=== PATIENT | female | born 1970 | race Caucasian/White ===

== ENCOUNTER 2022-08-26 09:16 | Outpatient (CLI) | payer OTHER, BC, MEDICAID, SELFPAY ==
--- NOTE | 2022-08-26 | ECG_ITS ---
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 Interpretive Statements NAME OF STUDY: EXERCISE SESTAMIBI STRESS TEST INDICATION: [Exertional Chest Pain, ] EXERCISE DATA: The patient was exercised by Bubba protocol. Baseline heart rate was 78 beats per minute. Baseline blood pressure was 154/112 millimeters of mercury. Target heart rate was 144 beats per minute. Maximum heart rate achieved was 151, which was 104% of the target heart rate. Maximum blood pressure was 203/100 millimeters of mercury. Total exercise time was 8 minutes and 1 seconds. Maximum METs achieved was 10.2. The reason for ending the test was completion of protocol. The patient complained of shortness of breath during the stress test, which then resolved at the end of the test. ELECTROCARDIOGRAM: BASELINE: Showed sinus rhythm, normal axis, no significant ST-T changes at the baseline noted. [] EXERCISE: At the peak exercise level, [] No significant ST-T changes suggestive of ischemia noted. [] RECOVERY: During the recovery period, heart rate dropped appropriately. No significant ST-T changes in the recovery suggestive of ischemia noted. [] CONCLUSION: 1. Exercise capacity []. 2. Heart rate response was [appropriate]. 3. Blood pressure response was [appropriate]. 4. Symptoms not suggestive of ischemia. 5. Electrocardiogram portion of the stress test was not suggestive of ischemia. 6. Nuclear scan will be documented separately. Electronically Signed On 09-10-2022 12:09:37 CDT by Peter Talamantes M.D. [id number]
[2022-08-26 11:05] VITALS: BMI 29.9
--- NOTE | 2022-08-26 11:31 | NMCV_ITS ---
NM ruslan perf SPECT r/s* [id number] Sudha Lopez Age: 51 Gender: F : 1970 Exam Date: 08/26/2022 11:31 Ordering Phys: Saba Sifuentes Technologist: EROS Andrade Exam Location: [facility] Indications: CHEST PAIN STRESS TEST Please see separate stress test report in [facility] for full findings IMAGE PROTOCOL Rest/Stress 1 Exercise Day Radiopharmaceutical Dose (mCi) Administration Site Administered by Rest: Tc-99m 10.8 IV EROS Robles Sestamibi Stress:Tc-99m 32.6 IV EROS Andrade Sestamibrissa Rest: 26-Aug-2022 60 Discovery 630 Stress: 26-Aug-2022 15 Discovery 630 Radiopharmaceutical was injected at 89 % maximum heart rate. Images obtained in supine and prone position. SPECT RESULTS Technical Quality: Excellent Raw Data Analysis: Normal Image Corrections: No attenuation or motion correction applied Summed Stress Score: 0 Summed Rest Score: 0 Summed Difference Score: 0 PERFUSION FINDINGS SPECT images demonstrate homogeneous tracer distribution throughout the myocardium. FUNCTIONAL RESULTS (calculated via Gated SPECT) Stress Image LV EF (%): 82 Stress EDV (mL):60 TID: 0.81 Stress ESV (mL):11 FUNCTIONAL FINDINGS: There is normal left ventricular systolic function. IMPRESSIONS 1. Normal myocardial perfusion imaging with no evidence of ischemia 2. LV systolic function is normal Peter Talamantes MD (Electronically Signed) Final Date: 30 August 2022 08:24 S
[2022-08-26 12:42] VITALS: BP 132/97; PULSE 96
== END 2022-08-26 09:17 | disposition home or self-care (01) ==
LOC: CDL 09:26
PROVIDERS: PCP Physician Assistant; Visit Provider Physician Assistant
DX: R07.9 Chest pain, unspecified (principal)
CPT/HCPCS: 36415; 78452; 93017; A9500

== ENCOUNTER → 2022-10-12 13:31 | Outpatient (BNVA) | payer OTHER, BC, MEDICAID, SELFPAY | PROVIDERS: PCP Physician Assistant; Referring Provider Electrodiagnostic Medicine; Visit Provider Student in an Organized Health Care Education/Training Program | DX: G56.02 Carpal tunnel syndrome, left upper limb (principal); M65.332 Trigger finger, left middle finger | CPT/HCPCS: 73110 ==

== ENCOUNTER 2022-11-10 07:42 | Day surgery (SDC) | payer OTHER, BC, MEDICAID, SELFPAY ==
[2022-11-09 09:09] VITALS: BMI 29.9
[2022-11-10] VITALS (7 sets, daily range): BP systolic 113–136; BP diastolic 80–98; PULSE 67–76; RESP 14–18; TEMP 36.2–36.6; O2SAT 94–99
--- NOTE | 2022-11-10 08:06 | W.PM.OPSUD ---
Surgery/Procedure H&P Update DATE OF PROCEDURE: November 10, 2022 DATE H&P PERFORMED: 10/12/22 CHANGES TO PREVIOUS DOCUMENTATION: None. No changes to HPI/office visit on 10/12/2022 continues to have symptoms of left carpal tunnel syndrome as well as left middle finger trigger. PREOP DIAGNOSIS: Left Carpal Tunnel syndrome, left middle finger trigger PRIMARY INDICATION FOR PROCEDURE: Left carpal tunnel syndrome, left middle finger trigger PLANNED PROCEDURE: Operation Date: 11/10/22 09:15 Proposed Procedures p left carpal tunnel release:66188 and left middle finger trigger finger release:65672,G56.02,M65.332(Left) - Williams Zabala DO s Trigger Finger Release(Left) - Williams Zabala DO
--- NOTE | 2022-11-10 08:09 | P.ANESASSM_ITS ---
Pre-Anesthetic Assessment Height/Weight: Height 1.65 m Weight 81.647 kg Temp Pulse Resp BP Pulse Ox O2 Del Method 97.7 F 70 18 135/98 99 Room Air 11/10/22 07:57 11/10/22 07:57 11/10/22 07:57 11/10/22 07:57 11/10/22 07:57 11/10/22 07:57 Preop Diagnosis: Left Carpal Tunnel syndrome, left middle finger trigger Operation Date: 11/10/22 09:15 Proposed Procedures p left carpal tunnel release:32711 and left middle finger trigger finger release:29114,G56.02,M65.332(Left) - Williams Vj, DO s Trigger Finger Release(Left) - Williams Lanier, DO Familial anesthetic complications: None Was Beta Enedina taken within 24 hours: N/A Was Clonidine taken within 24 hours: N/A Last intake: Intake Last Liquid Date 11/09/22 Last Liquid Time 23:00 Last Solid Date 11/09/22 Last Solid Time 19:00 Social No alcohol and No tobacco Exam alert, oriented x 3, clear to auscultation bilaterally and regular rate & rhythm Airway Mallampati: Class III Dentition: full Pulmonary Sleep Apnea CV/HEM Arrythmia (Paroxysmal a fib, A flutter), Hypertension and Myocardial Infarction (Type II NV) Hepatic Hepatitis Metabolic Morbid Obesity [facility] Rheumatoid Arthritis Anesthetic Plan ASA status: 3 Anesthesia: MAC Risk of > 500 ml blood loss (7ml/kg in children): No Medications/Allergies Home Medications Medication Instructions Recorded Confirmed Last Taken Type lisinopril 40 mg tablet 40 mg PO DAILY 08/26/22 11/09/22 11/09/22 History Allergies Allergy/AdvReac Type Severity Reaction Status Date / Time Sulfa (Sulfonamide Allergy Severe ALGY-Swell Verified 11/10/22 07:51 Antibiotics) Lip/Tongue/Throat adhesive Allergy ALGY-Bliste Verified 11/10/22 07:51 r codeine Allergy ALGY-Swell Verified 11/10/22 07:51 Lip/Tongue/Throat hydrocodone Allergy ALGY-Hives Verified 11/10/22 07:51 Data Anesthesia Cardiac Studies: Sestamibi Stress Test (Cardiology) 08/26
--- NOTE | 2022-11-10 08:12 | ANES.PREANE2 ---
Pre-Anesthetic Assessment Height/Weight: Height 1.65 m Weight 81.647 kg Temp Pulse Resp BP Pulse Ox O2 Del Method 97.7 F 70 18 135/98 99 Room Air 11/10/22 07:57 11/10/22 07:57 11/10/22 07:57 11/10/22 07:57 11/10/22 07:57 11/10/22 08:07 Preop Diagnosis: Left Carpal Tunnel syndrome, left middle finger trigger Operation Date: 11/10/22 09:15 Proposed Procedures p left carpal tunnel release:12952 and left middle finger trigger finger release:72777,G56.02,M65.332(Left) - Williams Vj, DO s Trigger Finger Release(Left) - Williams [place], DO Familial anesthetic complications: None Was Beta Enedina taken within 24 hours: N/A Was Clonidine taken within 24 hours: N/A Last intake: Intake Last Liquid Date 11/09/22 Last Liquid Time 23:00 Last Solid Date 11/09/22 Last Solid Time 19:00 Social No alcohol and No tobacco Exam alert, oriented x 3, clear to auscultation bilaterally and regular rate & rhythm Airway Mallampati: Class III Dentition: full CV/HEM Hypertension Anesthetic Plan ASA status: 2 Anesthesia: MAC Risk of > 500 ml blood loss (7ml/kg in children): No Medications/Allergies Home Medications Medication Instructions Recorded Confirmed Last Taken Type lisinopril 40 mg tablet 40 mg PO DAILY 08/26/22 11/09/22 11/09/22 History Allergies Allergy/AdvReac Type Severity Reaction Status Date / Time Sulfa (Sulfonamide Allergy Severe ALGY-Swell Verified 11/10/22 07:51 Antibiotics) Lip/Tongue/Throat adhesive Allergy ALGY-Bliste Verified 11/10/22 07:51 r codeine Allergy ALGY-Swell Verified 11/10/22 07:51 Lip/Tongue/Throat hydrocodone Allergy ALGY-Hives Verified 11/10/22 07:51 Data Anesthesia Cardiac Studies: Sestamibi Stress Test (Cardiology) 08/26/22
[2022-11-10] MEDS: sodium chloride 0.9% 1,000 ML 30 ML IV (08:16)
[2022-11-10] MEDS: acetaminophen 1,000 MG/100 ML PIGGYBACK 400 MG IV (08:17)
[2022-11-10] MEDS: ketorolac 30 mg/mL INJ IVP (08:17)
[2022-11-10] MEDS: ceFAZolin 2,000 MG in sodium chloride 0.9% (plus) 50 ML 100 MG IV (09:07)
[2022-11-10] MEDS: lidocaine-epi 1% 20 mL INJ 5 ML INJECTION (09:39)
--- NOTE | 2022-11-10 09:53 | PM.OP2 ---
Brief Operative Note Date of procedure: 11/10/22 Pre-op diagnosis: Left carpal tunnel syndrome, left middle finger trigger Post-op diagnosis: same Procedure Done: 1. Left carpal tunnel release 2. Left middle finger trigger release Surgeon: Williams Zabala Estimated blood loss (mL): 2 Complications: None Post-op Plan: Patient taken to PACU in stable condition recovering well pain controlled. Patient receive appropriate discharge directions as well as pain medication postoperatively. Patient to follow-up in the orthopedic office in 2 weeks Condition: stable Disposition: same day Coding Level of Care Code Acute Code for Alex Harris
--- NOTE | 2022-11-10 09:54 | PM.PACU ---
PACU note Narrative: Patient taken to PACU in stable condition recovering well pain controlled. Decreased sensation secondary to local anesthesia. Dressings on in place clean dry and intact fingertips warm well-perfused brisk cap refill less than 2 seconds patient able to wiggle fingers able to make a fist with no triggering left middle finger. Exam: awake Disposition: discharged
--- NOTE | 2022-11-10 09:55 | P.OP_ITS ---
Operative Report Date of procedure: November 10, 2022 Pre-op diagnosis: Preop Diagnosis Left Carpal Tunnel syndrome, left middle finger trigger Procedure: Post-op diagnosis: Same Procedure done: 1.Left carpal tunnel release 2. Left middle finger trigger release Surgeon: Williams Zabala DO Anesthesia: MAC (Local) Estimated blood loss: 2 mL Tourniquet time 19 minutes IV fluids: See anesthesia record Complications: None Findings: See operative report narrative Condition: stable Disposition: same day Brief History: Patient is a pleasant 51-year-old female with left carpal tunnel syndrome and left middle finger trigger.? She has been worked up in the outpatient setting findings and physical examination consistent with this.patient conduction studies consistent with left carpal tunnel syndrome. Given she has a left middle finger trigger and this is affecting her daily living situation/surgery of her left carpal tunnel she like to have this addressed at the same time. Given this mechanically triggers I feel this is appropriate next step. As result through shared decision making in detail out of patient's risk benefits complication alternatives with surgical nonsurgical treatment options she agrees to proceed with surgical intervention of the left carpal tunnel release on the left middle finger trigger release.? Patient understands and agrees with current plan.? All questions answered.? Patient elects to proceed with surgical intervention with carpal tunnel release. Procedure: Patient seen and evaluated in the preoperative holding area.? Consent was reviewed and signed with patient.? Correct extremity was marked.? Patient was seen evaluated by the anesthesia department once cleared for surgery was brought back to the operative suite.? Placement was placed onto the OR table in supine position all bony prominences were well-padded patient properly secured to the bed.? Left upper extremity was then placed onto an armboard.? A nonsterile tourniquet was applied to the left upper arm.? Patient underwent anesthesia per the anesthesia department.? Patient's left upper extremity was then prepped and draped in standard orthopedic fashion.? Final timeout performed.? Patient received appropriate preoperative antibiotics. Under sterile aseptic technique patient received local anesthesia over the preplanned carpal tunnel incision site. Esmarch was used to exsanguinate the left upper extremity and tourniquet was insufflated to 250 mmHg. A standard mini open carpal tunnel incision was made.? Starting distally at Ochoa's cardinal line in line with the fourth ray extending proximally distal to the wrist crease centered over the carpal tunnel.? Sharp scalpel incision was made through skin and subcutaneous tissue.? Self-retaining retractor was placed and the palmar fascia was identified.? This was then split longitudinally and direct visualization of the transverse carpal ligament was then made.? I then utilizing scalpel feathered through the transverse carpal ligament until I entered the floor of the transverse carpal tunnel ligament into the carpal tunnel.? Next I switched to dissection scissors and completed my release of the transverse carpal ligament distally with care to protect the recurrent motor branch.? I completely released into the palmar fat and until no entrapment was noted distally.? Care was made to protect the superficial palmar arch during my distal dissection.? Next I then placed a [place] underneath the transverse carpal tunnel ligament to protect the contents of the carpal tunnel and subsequently utilizing dissection scissors under loupe magnification completely released the transverse carpal ligament proximally into the median antebrachial fascia.? Care was made to protect the palmar cutaneous branch by keeping my scissors curved ulnarly.? Once completely released, I then placed my [place] and had appropriate decompression of the carpal tunnel proximally as well as distally.? I then inspected the contents of the carpal tunnel which showed an hourglass shape of the median nerve showing its compression.? No masses were noted.? Tendons appeared healthy.? Wound was then thoroughly irrigated.? Then proceeded with left middle finger trigger release. Patient had notably distal flexor palmar crease in the site directly over the A1 edmundo of the left middle finger utilize this in order to high the incision. A standard oblique incision was made within the screws roughly 1 cm in width. Sharp scalpel incision was made strictly through skin. I then subsequently switched to Littler dissection scissors spreading to currently in plane with the neurovascular bundles as well as flexor tendon. Once identified the flexor tendon I utilized with Kasdan retractors to protect the neurovascular bundles both radially and ulnarly. I direct visualization of the A1 edmundo and incised this with sharp scalpel incision. I then switched to Littler dissection scissors both proximally and distally to make sure complete release of the A1 edmundo. I then switched to a rag nail to deliver the tendons out of the incision with no mechanical triggering or catching was noted. All tendons were healthy. Patient was then gently awakened from anesthesia to evaluate range of motion. Once awake patient was able to make a full fist with no mechanical triggering left middle finger this confirmed appropriate decompression and A1 edmundo release of the left middle finger trigger. This completed the procedure. Tourniquet deflated.? Hemostasis satisfactory with bipolar electrocautery.? I then closed the incisions with interrupted nylon stitches.? Xeroform 4 x 4's and a bulky soft dressing was applied to the left upper extremity.? Patient was then awakened from anesthesia and taken to PACU in stable condition.? Patient tolerated procedure without complications. Disposition: Patient taken to PACU in stable condition recovering well.? Dressing clean dry and intact.? Patient will receive appropriate discharge inst ructions as well as pain medication postoperatively.? Patient to follow-up with in ortho office in 2 weeks.? They understand they may be weightbearing as tolerated to the left hand.? Patient should keep incision clean dry and intact.? Patient understands if any questions or concerns may contact the office.
[2022-11-10] MEDS: ibuprofen 800 mg tablet PO (10:34)
--- NOTE | 2022-11-10 15:56 | ANE.PACU2 ---
Inpatient post-anesthesia follow up: Airway intact: Yes Vital signs: Temperature 97.5 F Pulse Rate 69 Respiratory Rate 18 Blood Pressure 136/87 Pulse Oximetry 97 Oxygen Delivery Me thod Room Air Oxygen Flow Rate Fraction of Inspir ed Oxygen Hydration adequate: Yes Nausea and vomiting: Yes Pain level: 1 Mental status: Baseline
== END 2022-11-10 10:55 | disposition home or self-care (01) ==
PROVIDERS: PCP Physician Assistant; Visit Provider Student in an Organized Health Care Education/Training Program
PROC: (CPT 64721; principal; 2022-11-10 09:05)
PROC: (CPT 26055; 2022-11-10 09:05)
DX: G56.02 Carpal tunnel syndrome, left upper limb (principal); M65.332 Trigger finger, left middle finger; I10 Essential (primary) hypertension; I25.2 Old myocardial infarction; K75.9 Inflammatory liver disease, unspecified; I48.0 Paroxysmal atrial fibrillation; M06.9 Rheumatoid arthritis, unspecified; E66.01 Morbid (severe) obesity due to excess calories; Z68.30 Body mass index [BMI] 30.0-30.9, adult
CPT/HCPCS: 26055; 64721; J0131; J0690; J1885; J2250; J2704; J3010; J3490; J7030

== ENCOUNTER 2022-11-26 15:00 | Outpatient (RCR) | payer OTHER, BC, MEDICAID, SELFPAY | END 2022-12-04 23:59 | disposition home or self-care (01) | LOC: SOT 15:00 | PROVIDERS: Visit Provider Student in an Organized Health Care Education/Training Program | DX: Z47.89 Encounter for other orthopedic aftercare (principal) | CPT/HCPCS: 97022; 97110; 97140; 97166; 97530 ==

== ENCOUNTER 2022-12-05 06:00 | Outpatient (RCR) | payer OTHER, BC, MEDICAID, SELFPAY | END 2023-01-04 23:59 | disposition home or self-care (01) | LOC: SOT 06:00 | PROVIDERS: Visit Provider Student in an Organized Health Care Education/Training Program | DX: Z47.89 Encounter for other orthopedic aftercare (principal) | CPT/HCPCS: 97022; 97110; 97140 ==

== ENCOUNTER → 2023-01-13 15:01 | Outpatient (BNVA) | payer OTHER, SELFPAY | PROVIDERS: Visit Provider Nurse Practitioner | DX: S69.92XA Unspecified injury of left wrist, hand and finger(s), initial encounter (principal); W19.XXXA Unspecified fall, initial encounter | CPT/HCPCS: 73110 ==

== ENCOUNTER 2023-04-16 12:44 | Outpatient (CLI) | payer BC, MEDICAID, SELFPAY ==
[2023-04-16 13:02] LABS: Lipase 16 U/L (13-60)
== END 2023-04-16 12:45 | disposition home or self-care (01) ==
PROVIDERS: Visit Provider Nurse Practitioner Family
DX: R10.10 Upper abdominal pain, unspecified (principal)
CPT/HCPCS: 83690